=== PATIENT | male | born 1985 | race Hispanic/Latino ===

== ENCOUNTER 2021-03-24 10:24 | Emergency (ER) | payer OTHER, SELFPAY ==
--- OUTSIDE RECORDS SUMMARY | 2021-03-24 10:26 | XMS REPORT | Continuity of Care Document ---
:[address] [facility] t Address [address] [place] [address] Care Team Providers Name Role Phone ARNOLD Attending Clinician Unavailable Problems This patient has no known problems. Allergies, Adverse Reactions, Alerts This patient has no known allergies or adverse reactions. Medications This patient has no known medications. Procedures This patient has no known procedures. Encounters Start End Encounter Admission Attending Care Care Encounter Source Date/Time Date/Time Type Type Clinicians Facility Department ID 2020-03-08 2020-03-08 Outpatient ARNOLD [facility] [id number] [place] 00:00:00 00:00:00 [address] Results This patient has no known results.
--- NOTE | 2021-03-24 11:34 | RAD REPORT ---
EXAM DESCRIPTION: CT - Head Brain Wo Cont - 03/24/2021 11:06 am CLINICAL HISTORY: paresthesia Headache, drowsiness COMPARISON: No comparisons TECHNIQUE: All CT scans are performed using dose optimization technique as appropriate and may inclu de automated exposure control or mA/KV adjustment according to patient size. FINDINGS: No intracranial hemorrhage, hydrocephalus or extra-axial fluid collection.No areas of brai n edema or evidence of midline shift. The paranasal sinuses and mastoids are clear. The calvarium is intact. IMPRESSION: No acute intracranial abnormality.
--- NOTE | 2021-03-24 11:38 | RAD REPORT ---
EXAM DESCRIPTION: RAD - Chest Single View - 03/24/2021 11:12 am CLINICAL HISTORY: Left arm numbness Chest pain. COMPARISON: Chest Pa And Lat (2 Views) dated 02/12/2017 FINDINGS: Portable technique limits examination quality. The lungs are grossly clear. The heart is normal in size. No displaced fractures. IMPRESSION: No acute intrathoracic process suspected.
[2021-03-24 11:46] LABS: Absolute Lymphocytes (CBC) 1.7 K/uL (0.7-4.9); Basophils % 0.1 % (0-1.3); Lymphocytes % 19.3 % (15.3-44.8); MPV 9.4 fL (7.6-11.3); RBC Red Blood Cell Count 5.14 M/uL (4.33-5.43)
[2021-03-24 11:49] LABS: Protime INR 1.06
[2021-03-24 12:06] LABS: Albumin 3.6 g/dL (3.4-5.0); Bilirubin Direct 0.2 mg/dL (0-0.2); Bilirubin Total 0.7 mg/dL (0.2-1.0); Potassium 3.8 mmol/L (3.5-5.1); Protein, Total 8.3 g/dL (6.4-8.2); Troponin (Emerg Dept Use Only) 0.02 ng/mL (0.0-0.045)
--- NOTE | 2021-03-24 16:02 | EDPHYS ---
Physician Documentation [facility] Name: Radu Hung Age: 35 yrs Sex: Male : 1985 Arrival Date: 03/24/2021 Time: 10:24 Bed 17 Private MD: ED Physician Yu Muhammad HPI: 03/24 10:55 This 35 yrs old Male presents to ER via Ambulatory with complaints of Numbness sp3 Of Arm, Numbness Of Face. 10:55 35-year-old male with a history of prior myocardial infarction, obesity, gout now sp3 presents with left-sided numbness which was there when he woke up this morning and has improved but is still present. Patient states that his whole left upper extremity is numb particularly his hand. It is his entire hand with no differentiation between the fingers. Patient denies "sleeping on it wrong", trauma, long periods of arm abduction/extension, or prior episodes of the same. Patient's last and only myocardial infarction was over 2 years ago and patient states that he was on "blood thinners" for 1 year after which his routeman took him off. He is currently on no medications whatsoever. Patient states he came into the ED because of the persistent length of the numbness which she anticipated would have self resolved after waking up. Patient denies headache, neck pain, chest pain, back pain, diaphoresis (which is how his first MD presented), shortness of breath, URI symptoms, abdominal pain, nausea, vomiting, diarrhea, syncope, gait abnormality, speech abnormality, focal weakness, or any other paresthesias other than his presenting symptoms.. Historical: - Allergies: 10:45 No Known Allergies; iw - Home Meds: 10:45 None [Active]; iw - PMHx: 10:45 Myocardial infarction; iw - PSHx: 10:45 heart stent; iw - Immunization history:: Client reports receiving the 2nd dose of the Covid vaccine. - Social history:: Smoking status: Reported history of juuling and/or vaping. ROS: 10:57 Constitutional: Negative for fever, chills, and weight loss, Eyes: Negative for injury, sp3 pain, redness, and discharge, ENT: Negative for injury, pain, and discharge, Neck: Negative for injury, pain, and swelling, Cardiovascular: Negative for chest pain, palpitations, and edema, Respiratory: Negative for shortness of breath, cough, wheezing, and pleuritic chest pain, Abdomen/GI: Negative for abdominal pain, nausea, vomiting, diarrhea, and constipation, Back: Negative for injury and pain, : Negative for injury, bleeding, discharge, and swelling, Skin: Negative for injury, rash, and discoloration, Psych: Negative for depression, anxiety, suicide ideation, homicidal ideation, and hallucinations, Allergy/Immunology: Negative for hives, rash, and allergies, Endocrine: Negative for neck swelling, polydipsia, polyuria, polyphagia, and marked weight changes, Hematologic/Lymphatic: Negative for swollen nodes, abnormal bleeding, and unusual bruising. 10:57 All other systems are negative. Exam: 10:57 Constitutional: This is a well developed, well nourished patient who is awake, alert, sp3 and in no acute distress. Head/Face: Normocephalic, atraumatic. Eyes: Pupils equal round and reactive to light, extra-ocular motions intact. Lids and lashes normal. Conjunctiva and sclera are non-icteric and not injected. Cornea within normal limits. Periorbital areas with no swelling, redness, or edema. ENT: Nares patent. No nasal discharge, no septal abnormalities noted. External auditory canals are clear. Oropharynx with no redness, swelling, or masses, exudates, or evidence of obstruction, uvula midline. Mucous membranes moist. Neck: Trachea midline, no thyromegaly or masses palpated, and no cervical lymphadenopathy. Supple, full range of motion without nuchal rigidity, or vertebral point tenderness. No Meningismus. Chest/axilla: Normal chest wall appearance and motion. Nontender with no deformity. No lesions are appreciated. Cardiovascular: Regular rate and rhythm with a normal S1 and S2. No gallops, murmurs, or rubs. Normal PMI, no JVD. No pulse deficits. Respiratory: Lungs have equal breath sounds bilaterally, clear to auscultation and percussion. No rales, rhonchi or wheezes noted. No increased work of breathing, no retractions or nasal flaring. Abdomen/GI: Soft, non-tender, with normal bowel sounds. No distension or tympany. No guarding or rebound. No evidence of tenderness throughout. Back: No spinal tenderness. No costovertebral tenderness. Full range of motion. MS/ Extremity: Pulses equal, no cyanosis. Neurovascular intact. Full, normal range of motion. Psych: Awake, alert, with orientation to person, place and time. Behavior, mood, and affect are within normal limits. 10:57 Neuro: Neurological exam is normal other than subjective paresthesias of the left upper extremity particularly the hand and distal forearm. Patient does have two-point discrimination present but states a subjective difference between his left and right upper extremities. Motor strength is normal all dermatomes and peripheral nerves. Vascular exam is normal with normal radial pulse and capillary refill. There is no evidence of trauma or rash.. 12:00 ECG was reviewed by the Attending Physician. EKG demonstrates normal sinus rhythm at 80 sp3 bpm with Q waves in leads III and aVF but no ST elevation or depression in any leads. There is no evidence of acute ischemia. Unknown if Q waves or new or old is no old EKGs available. Vital Signs: 10:42 BP 140 / 91; Pulse 85; Resp 16 S; Temp 97.8; Pulse Ox 100% on R/A; Weight 158.76 kg; iw Height 6 ft. 0 in. (182.88 cm); 10:52 BP 118 / 76; Pulse 87; Resp 20; Temp 97.8(O); Pulse Ox 99% on R/A; sl2 11:37 BP 132 / 81; Pulse 78; Resp 20; Pulse Ox 100% on R/A; sl2 12:00 BP 136 / 87; Pulse 75; Resp 18; Pulse Ox 99% on R/A; sl2 12:30 BP 134 / 88; Pulse 73; Resp 18; Pulse Ox 97% on R/A; sl2 13:02 BP 143 / 84; Pulse 89; Resp 20; Pulse Ox 100% on R/A; sl2 14:00 BP 142 / 84; Pulse 78; Resp 18; Temp 98.2; Pulse Ox 99% ; sl2 15:30 BP 138 / 80; Pulse 18; Resp 18; Temp 97.9(O); Pulse Ox 99% on R/A; sl2 10:42 Body Mass Index 47.47 (158.76 kg, 182.88 cm) iw MDM: 10:53 Patient medically screened. sp3 10:59 Data reviewed: vital signs, nurses notes. ED course: 35-year-old male with left upper sp3 extremity subjective numbness. Given patient's past medical history of MD, will obtain cardiac work-up and a CT scan of the head. Symptoms have been occurring now for 4 hours and were present when awoke. I meant highly suspicious of an acute CVA. Likely 2 troponin values 4 hours apart will also rule patient out of myocardial infarction. EKG is still pending and final disposition will be based on data and patient course.. 12:01 ED course: Work-up is pending. Patient is resting comfortably using his cell phone with sp3 both hands and in no acute distress.. 16:01 ED course: Numbness is resolved and repeat troponin at 4 hours is negative. Will sp3 discharge patient home at this time.. 03/24 10:54 Order name: Basic Metabolic Panel sp3 03/24 10:54 Order name: CBC with Diff; Complete Time: 12:45 sp3 03/24 10:54 Order name: LFT's; Complete Time: 12:45 sp3 03/24 10:54 Order name: Magnesium; Complete Time: 12:45 sp3 03/24 10:54 Order name: NT PRO-BNP; Complete Time: 12:45 sp3 03/24 10:54 Order name: PT-INR; Complete Time: 12:45 sp3 03/24 10:54 Order name: Troponin (emerg Dept Use Only); Complete Time: 12:45 sp3 03/24 10:54 Order name: XRAY Chest (1 view); Complete Time: 12:45 sp3 03/24 10:54 Order name: EKG; Complete Time: 10:55 sp3 03/24 10:54 Order name: Cardiac monitoring; Complete Time: 12:18 sp3 03/24 10:54 Order name: CT Head Brain wo Cont; Complete Time: 12:45 sp3 03/24 10:55 Order name: Basic Metabolic Panel; Complete Time: 12:45 EDMS 03/24 12:46 Order name: Troponin (emerg Dept Use Only): Draw 4 hrs after first sp3 03/24 12:46 Order name: Troponin (Emerg Dept Use Only); Complete Time: 16:00 EDMS 03/24 10:54 Order name: EKG - Nurse/Tech; Complete Time: 12:05 sp3 03/24 10:54 Order name: IV Saline Lock; Complete Time: 12:18 sp3 03/24 10:54 Order name: Labs collected and sent; Complete Time: 12:18 sp3 03/24 10:54 Order name: O2 Per Protocol; Complete Time: 12:18 sp3 03/24 10:54 Order name: O2 Sat Monitoring; Complete Time: 12:18 sp3 Administered Medications: No medications were administered Disposition Summary: 03/24/21 16:01 Discharge Ordered Location: Home sp3 Condition: Stable sp3 Diagnosis - Paresthesia of skin sp3 Followup: sp3 - With: Private Physician - When: - Reason: Recheck today's complaints Discharge Instructions: - Discharge Summary Sheet sp3 - Paresthesia sp3 Forms: - Medication Reconciliation Form sp3 - Thank You Letter sp3 - Antibiotic Education sp3 - Prescription Opioid Use sp3 Signatures: Dispatcher [employer] Joanne Dinh, Yu Triana RN, MD MD sp3
--- NOTE | 2021-03-24 16:02 | ER ---
Nurse's Notes [facility] Name: Radu Hung Age: 35 yrs Sex: Male : 1985 Arrival Date: 03/24/2021 Time: 10:24 Bed 17 Private MD: Diagnosis: Paresthesia of skin Presentation: 03/24 10:42 Chief complaint: Patient states: left arm feels like it's asleep, woke up at 10 am, iw went to sleep around 10 pm last night, around his mouth felt tingly also but that has resolved now, and his shoulder felt cold. Coronavirus screen: At this time, the client does not indicate any symptoms associated with coronavirus-19. Ebola Screen: Patient negative for fever greater than or equal to 101.5 degrees Fahrenheit, and additional compatible Ebola Virus Disease symptoms Patient denies exposure to infectious person. Patient denies travel to an Ebola-affected area in the 21 days before illness onset. No symptoms or risks identified at this time. Initial Sepsis Screen: Does the patient meet any 2 criteria? No. Patient's initial sepsis screen is negative. Does the patient have a suspected source of infection? No. Patient's initial sepsis screen is negative. Risk Assessment: Do you want to hurt yourself or someone else? Patient reports no desire to harm self or others. Onset of symptoms was March 24, 2021. 10:42 Method Of Arrival: Ambulatory iw 10:42 Acuity: JM 3 iw Historical: - Allergies: 10:45 No Known Allergies; iw - Home Meds: 10:45 None [Active]; iw - PMHx: 10:45 Myocardial infarction; iw - PSHx: 10:45 heart stent; iw - Immunization history:: Client reports receiving the 2nd dose of the Covid vaccine. - Social history:: Smoking status: Reported history of juuling and/or vaping. Screenin:52 Abuse screen: Denies threats or abuse. Denies injuries from another. Nutritional sl2 screening: No deficits noted. Tuberculosis screening: No symptoms or risk factors identified. Fall Risk None identified. No fall in past 12 months (0 pts). No secondary diagnosis (0 pts). No IV (0 pts). Ambulatory Aid- None/Bed Rest/Nurse Assist (0 pts). Gait- Normal/Bed Rest/Wheelchair (0 pts) Mental Status- Oriented to own ability (0 pts). Total Carrera Fall Scale indicates No Risk (0-24 pts). Assessment: 10:48 Reassessment: EDP Dr Muhammad present at bedside for patient interview and assessment. sl2 10:52 General: Appears in no apparent distress. obese, well developed, Behavior is calm, sl2 cooperative, appropriate for age. Pain: Denies pain. Neuro: Reports numbness in Left arm since 10am today when he woke up Denies weakness blurred vision dizziness. 10:52 Cardiovascular: No deficits noted. Rhythm is regular. Respiratory: No deficits noted. sl2 Airway is patent Trachea midline Respiratory effort is even, unlabored, Respiratory pattern is regular, symmetrical. GI: No deficits noted. No signs and/or symptoms were reported involving the gastrointestinal system. : No deficits noted. No signs and/or symptoms were reported regarding the genitourinary system. EENT: No deficits noted. No signs and/or symptoms were reported regarding the EENT system. Derm: No deficits noted. No signs and/or symptoms reported regarding the dermatologic system. Musculoskeletal: No deficits noted. No signs and/or symptoms reported regarding the musculoskeletal system. 12:51 Reassessment: Patient asleep, shows no signs of acute distress - SR noted on cardiac sl2 monitor at 74bpm, vital signs stable - will continue to re-assess and monitor. Vital Signs: 10:42 BP 140 / 91; Pulse 85; Resp 16 S; Temp 97.8; Pulse Ox 100% on R/A; Weight 158.76 kg; iw Height 6 ft. 0 in. (182.88 cm); 10:52 BP 118 / 76; Pulse 87; Resp 20; Temp 97.8(O); Pulse Ox 99% on R/A; sl2 11:37 BP 132 / 81; Pulse 78; Resp 20; Pulse Ox 100% on R/A; sl2 12:00 BP 136 / 87; Pulse 75; Resp 18; Pulse Ox 99% on R/A; sl2 12:30 BP 134 / 88; Pulse 73; Resp 18; Pulse Ox 97% on R/A; sl2 13:02 BP 143 / 84; Pulse 89; Resp 20; Pulse Ox 100% on R/A; sl2 14:00 BP 142 / 84; Pulse 78; Resp 18; Temp 98.2; Pulse Ox 99% ; sl2 15:30 BP 138 / 80; Pulse 18; Resp 18; Temp 97.9(O); Pulse Ox 99% on R/A; sl2 10:42 Body Mass Index 47.47 (158.76 kg, 182.88 cm) ED Course: 10:24 Patient arrived in ED. as 10:45 Triage completed. iw 10:45 Arm band placed on. iw 10:47 Yu Muhammad MD is Attending Physician. sp3 10:49 Lauren Cotto, RN is Primary Nurse. sl2 10:52 Patient has correct armband on for positive identification. Bed in low position. Call sl2 light in reach. 10:52 No provider procedures requiring assistance completed. sl2 11:[address] via stretcher. sl2 11:06 CT Head Brain wo Cont In Process Unspecified. EDMS 11:11 XRAY Chest (1 view) In Process Unspecified. EDMS 11:15 Inserted saline lock: 18 gauge in left antecubital area, using aseptic technique. Blood sl2 collected. 11:50 EKG done, by ED staff, reviewed by Yu Muhammad MD. 3 16:14 IV discontinued, intact, bleeding controlled, No redness/swelling at site. Pressure sl2 dressing applied. Administered Medications: No medications were administered Outcome: 16:01 Discharge ordered by . sp3 16:14 Discharged to home ambulatory. sl2 16:14 Condition: stable 16:14 Discharge instructions given to patient, Instructed on discharge instructions, follow up and referral plans. Demonstrated understanding of instructions, follow-up care. 16:15 Patient left the ED. sl2 Signatures: Dispatcher [employer] Tayler White Irene, RN RN Pily Carias [facility] Yu Muhammad MD MD 3 Lauren Cotto, URMILA RN 2
[2021-03-24 16:45] VITALS: O2SAT 99
[2021-03-24 16:46] VITALS: BP 138/80; TEMP 97.9
== END 2021-03-24 16:15 | disposition home or self-care (01) ==
LOC: ER 10:24
DX: R20.2 Paresthesia of skin (principal); I25.2 Old myocardial infarction; Z95.818 Presence of other cardiac implants and grafts
CPT/HCPCS: 36415; 70450; 71045; 80048; 80076; 83735; 83880; 84484; 85025; 85610; 93005; 99284